=== PATIENT | female | born 1960 | race Caucasian/White ===

== ENCOUNTER 2019-08-03 17:17 | Outpatient (CLI) | payer SELFPAY ==
[2019-08-03 18:40] LABS: Alanine Aminotransferase 14 U/L (0-33); Albumin Level 4.3 g/dL (3.5-5.2); Alkaline Phosphatase 97 IU/L (35-105); Anion Gap 18.4 (5-19); Aspartate Amino Transferase 17 U/L (0-32); Blood Urea Nitrogen 15 mg/dL (6-20); Calcium 9.4 mg/dL (8.5-10.5); Carbon Dioxide 25 mmol/L (22-29); Chloride 99 mmol/L (98-107); Chol HDL Ratio 5.06 mg/dL (0.0-4.40); Cholesterol 157 mg/dL (0-200); Globulin 2.8 g/dL (1.3-4.6); Glomerular Filtration Rate 73.9 mL/min (90-130); Glucose 100 mg/dL (65-115); HDL Cholesterol 31 mg/dL (60-100); LDL Cholesterol Calculated 80 mg/dL (50-129); LDL HDL Ratio 2.58 RATIO (0.00-3.22); Osmolality Calculated 284 mOsm/kg (285-295); Potassium 3.4 mmol/L (3.5-5.1); Sodium 139 mmol/L (136-145); Total Bilirubin 0.8 mg/dL (0.15-1.2); Total Protein 7.1 g/dL (6.6-8.7); Triglycerides 228 mg/dL (0-150)
== END 2019-08-03 17:18 | disposition home or self-care (01) ==
LOC: LAB 17:17
PROVIDERS: PCP Nurse Practitioner; Visit Provider General Practice
DX: I10 Essential (primary) hypertension (principal)
CPT/HCPCS: 80053; 80061

== ENCOUNTER 2021-03-31 20:49 | Emergency (ER) | payer MEDICAID, SELFPAY ==
--- NOTE | 2021-03-31 20:58 | XRR_ITS ---
PROCEDURE INFORMATION: Exam: XR Chest Exam date and time: 03/31/2021 8:58 PM Age: 60 years old Clinical indication: Dyspnea; Additional info: SOB TECHNIQUE: Imaging protocol: XR of the chest. Views: 1 view. COMPARISON: No relevant prior studies available. FINDINGS: Lungs: Hazy opacity projecting over the lower lungs bilaterally may be due to overlying soft tissues. There is no focal consolidation. There is a granuloma in the left upper lung. Pleural spaces: There is no pleural effusion or pneumothorax. Heart/Mediastinum: Cardiomediastinal contours are unremarkable. Bones/joints: Bones are unremarkable. XR/XR chest 1V portable [id number] IMPRESSION: Mild hazy opacity in the lower lungs of questionable significance. Possible pulmonary edema or consolidation versus density related overlying soft tissues. Consider follow-up PA and lateral chest radiographs.
[2021-03-31 22:19] VITALS: BP 160/106; PULSE 94; RESP 28; TEMP 36.9; O2SAT 95; BMI 47.2
--- NOTE | 2021-03-31 22:25 | ECG_ITS ---
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 Measurements Intervals [place] Rate: 94 P: 75 MN: 167 QRS: 61 QRSD: 87 T: 83 QT: 348 QTc: 435 Interpretive Statements SINUS RHYTHM No previous ECG available for comparison Electronically Signed On 04-01-2021 17:12:44 NOVELTY CHAIN MAKER by Caleb Crowell M.D. [id number]
[2021-04-01 00:01] LABS: Basophils % 0.7 %; Eosinophils # 0.1 10^3/uL (0.0-0.8); Eosinophils % 2.1 %; Hematocrit 42.5 % (37.0-47.0); Hemoglobin 13.4 g/dL (11.5-15.3); Lymphocytes # 1.1 10^3/uL (0.8-4.8); Mean Corpuscular HGB Conc 31.5 g/dL (30.0-36.0); Mean Corpuscular Hemoglobin 28.9 pg (28.0-34.0); Mean Corpuscular Volume 91.6 fl (81-99); Mean Platelet Volume 9.2 fL (7.4-10.4); Monocytes # 0.4 10^3/uL (0.2-0.9); Monocytes % 7.6 %; Neutrophils # 3.94 10^3/uL (1.8-7.7); Neutrophils % 69.2 %; Nucleated Red Blood Cells % 0 %; Platelet Count 186 10^3/cmm (130-400); Red Blood Count 4.64 10^6/uL (4.1-5.3); Red Cell Distribution Width 13.6 % (12.1-15.1); White Blood Count 5.7 10^3/uL (4.0-10.0)
[2021-04-01 00:22] LABS: SARS Covid-2 Antigen Negative (Negative)
[2021-04-01 00:37] LABS: Troponin(5th) Baseline 6 ng/L (0-10)
[2021-04-01 00:38] LABS: Albumin Level 4.4 g/dL (3.5-5.2); Alkaline Phosphatase 106 IU/L (35-105); Blood Urea Nitrogen 14 mg/dL (6-20); Calcium 8.2 mg/dL (8.5-10.5); Carbon Dioxide 26 mmol/L (22-29); Chloride 100 mmol/L (98-107); Globulin 1.9 g/dL (1.3-4.6); Glomerular Filtration Rate 102.3 mL/min (90-130); Glucose 93 mg/dL (65-115); Osmolality Calculated 284 mOsm/kg (285-295); Sodium 137 mmol/L (136-145); Total Bilirubin 0.5 mg/dL (0.15-1.2); Total Protein 6.3 g/dL (6.6-8.7)
[2021-04-01 00:43] LABS: Alanine Aminotransferase 13 U/L (0-33); Anion Gap 16.1 (5-19); Aspartate Amino Transferase 27 U/L (0-32); Potassium 5.1 mmol/L (3.5-5.1)
[2021-04-01 00:44] LABS: Procalcitonin 0.05 ng/mL (0-0.5)
--- NOTE | 2021-04-01 01:15 | W.ED.SOB ---
HPI - SOB/Dyspnea General: Chief Complaint: Shortness of Breath/Dyspnea Stated Complaint: diff breathing, cough Time Seen by Provider: 03/31/21 23:19 Source: patient Mode of arrival: ambulatory Limitations: no limitations History of Present Illness: HPI Narrative: 60-year-old female states that over the last 3 to 4 days she had a cough congestion along with some shortness of breath she states she does have a history of bronchitis and this is similar. She has had low-grade fevers. She denies any worsening improving factors denies any vomiting denies any chest pain currently. She is in no distress able speak in full senses. Associated symptoms: Deny abdominal pain, chest pain, fever(s), nausea or vomiting Review of Systems Const: Denies: fever(s), chills, body aches or change in appetite Eyes: Denies: blurry vision or eye discomfort ENMT: Denies: throat pain or dental pain Card: Denies: chest pain Resp: Reports: dyspnea, non-productive cough and wheezing GI: Denies: abdominal pain, nausea, vomiting or diarrhea : Denies: dysuria Musc: Denies: neck pain or back pain Skin/Breast: Denies: rash Neuro: Denies: headache(s) Psych: Denies: depression Mehrdad/Lymph: Denies: easy bruising All/Imm: Denies: urticaria PFSH ED PFSH: Medical History Bronchitis Social History Smoking and tobacco status: former smoker Physical Exam Const: COMMON NORMALS: no acute distress, patient oriented x3 and healthy appearing HENMT: COMMON NORMALS: normocephalic and atraumatic HEAD & SCALP: normocephalic and atraumatic Eye: COMMON NORMALS: Equal, round and reactive pupils present and EOMs intact bilaterally PUPIL: Yes Equal, round and reactive pupils present Neck/C-Spine: COMMON NORMALS: full ROM and supple Chest: COMMONS NORMALS: normal inspection of the chest and normal palpation of entire chest wall Resp: COMMON NORMALS: normal respiratory effort, No retractions, No use of accessory muscles and clear to auscultation bilaterally AUSCULTATION: clear to auscultation bilaterally and wheezes Cardio: COMMON NORMALS: regular rate, regular rhythm and No murmurs present (Cardio) RATE: regular rate RHYTHM: regular rhythm GI: COMMON NORMALS: Normal to inspection, nondistended, normoactive bowel sounds present, Soft to palpation, non-tender and no masses PALPATION: Yes Soft to palpation Extremity: COMMON NORMALS: normal to inspection and full ROM Neuro: COMMON NORMALS: patient oriented x3, moves all extremities and no focal motor deficits Psych: COMMON NORMALS: mental status grossly normal, Normal thought process present and cooperative THOUGHT PROCESS: Normal thought process present Skin: COMMON NORMALS: no rashes or lesions noted and no wounds GENERAL SKIN EXAM: no rashes or lesions noted Course Vital Signs: Vital signs: Vital Signs Temperature 98.4 F 03/31/21 22:19 Pulse Rate 94 03/31/21 22:19 Respiratory Rate 28 H 03/31/21 22:19 Blood Pressure 160/106 03/31/21 22:19 Pulse Oximetry 95 03/31/21 22:19 MDM - SOB/Dyspnea Medical Decision Making Patient presents here with cough congestion consistent with bronchitis. She does have wheezing here no severe distress x-ray shows a possible haziness we will treat with antibiotics doxycycline along with prednisone and albuterol she is stable for discharge return if worsening she understands agrees to plan. Lab Data : 03/31/21 23:50 03/31/21 23:50 Labs/Radiology: Radiology Impressions Chest X-Ray 03/31/21 20:58 IMPRESSION: Mild hazy opacity in the lower lungs of questionable significance. Possible pulmonary edema or consolidation versus density related overlying soft tissues. Consider follow-up PA and lateral chest radiographs. Laboratory Results WBC 5.7 10^3/uL (4.0-10.0) 03/31/21 23:50 RBC 4.64 10^6/uL (4.1-5.3) 03/31/21 23:50 Hgb 13.4 g/dL (11.5-15.3) 03/31/21 23:50 Hct 42.5 % (37.0-47.0) 03/31/21 23:50 MCV 91.6 fl (81-99) 03/31/21 23:50 MCH 28.9 pg (28.0-34.0) 03/31/21 23:50 MCHC 31.5 g/dL (30.0-36.0) 03/31/21 23:50 RDW 13.6 % (12.1-15.1) 03/31/21 23:50 Plt Count 186 10^3/cmm (130-400) 03/31/21 23:50 MPV 9.2 fL (7.4-10.4) 03/31/21 23:50 Neut % (Auto) 69.2 % 03/31/21 23:50 Lymph % (Auto) 20.0 % 03/31/21 23:50 [place] % (Auto) 7.6 % 03/31/21 23:50 Eos % (Auto) 2.1 % 03/31/21 23:50 Baso % (Auto) 0.7 % 03/31/21 23:50 Neut # (Auto) 3.94 10^3/uL (1.8-7.7) 03/31/21 23:50 Lymph # (Auto) 1.1 10^3/uL (0.8-4.8) 03/31/21 23:50 [place] # (Auto) 0.4 10^3/uL (0.2-0.9) 03/31/21 23:50 Eos # (Auto) 0.1 10^3/uL (0.0-0.8) 03/31/21 23:50 Baso # (Auto) 0.0 10^3/uL (0.0-0.1) 03/31/21 23:50 Nucleated RBC % (auto) 0 % 03/31/21 23:50 Nucleated RBCs # 0.0 /100WBC 03/31/21 23:50 Sodium 137 mmol/L (136-145) 03/31/21 23:50 Potassium 5.1 mmol/L (3.5-5.1) 03/31/21 23:50 Chloride 100 mmol/L (98-107) 03/31/21 23:50 Carbon Dioxide 26 mmol/L (22-29) 03/31/21 23:50 Anion Gap 16.1 (5-19) 03/31/21 23:50 BUN 14 mg/dL (6-20) 03/31/21 23:50 Creatinine 0.6 mg/dL (0.5-0.9) 03/31/21 23:50 GFR Calculation 102.3 mL/min (90-130) 03/31/21 23:50 Glucose 93 mg/dL (65-115) 03/31/21 23:50 Calculated Osmolality 284 mOsm/kg (285-295) L 03/31/21 23:50 Calcium 8.2 mg/dL (8.5-10.5) L 03/31/21 23:50 Total Bilirubin 0.5 mg/dL (0.15-1.2) 03/31/21 23:50 AST 27 U/L (0-32) 03/31/21 23:50 ALT 13 U/L (0-33) 03/31/21 23:50 Alkaline Phosphatase 106 IU/L (35-105) H 03/31/21 23:50 Troponin T Baseline 6 ng/L (0-10) 03/31/21 23:50 Total Protein 6.3 g/dL (6.6-8.7) L 03/31/21 23:50 Albumin 4.4 g/dL (3.5-5.2) 03/31/21 23:50 Globulin 1.9 g/dL (1.3-4.6) 03/31/21 23:50 Procalcitonin 0.05 ng/mL (0-0.5) 03/31/21 23:50 SARS-CoV-2 Ag (Rapid) Negative (Negative) 03/31/21 23:50 Imaging Data CXR: I personally reviewed and interpreted this imaging study as follows: Radiologist's impression: IMPRESSION: Mild hazy opacity in the lower lungs of questionable significance. Possible pulmonary edema or consolidation versus density related overlying soft tissues. Consider follow-up PA and lateral chest radiographs. Discharge Plan Discharge Patient Disposition: Home Clinical Impression: Bronchitis Prescriptions: New prednisone 50 mg tablet 50 mg PO DAILY Qty: 5 0RF albuterol sulfate 90 mcg/actuation HFA aerosol inhaler 2 inh INHALATION Q6H PRN (Reason: shortness of breath or wheezing) Qty: 8 0RF doxycycline hyclate 100 mg tablet 100 mg PO BID 7 Days Qty: 14 0RF Discharge Orders: Discharge ED (Routine); Ordered 04/01/21 Ordered By: Raissa Silvestre Discharge Diet: Advance as tolerated Discharge Activity: Resume usual activity Patient Instructions: Acute Bronchitis (ED) Coding Level of Care Code ED Remote Pilot Operator for Chg Fwd Exam Comprehensive
[2021-04-01 01:25] VITALS: PULSE 95; RESP 18; O2SAT 95
[2021-04-01] MEDS: albuterol 8 gm MDI 2 PUFF INHALATION (01:25)
[2021-04-01 01:33] VITALS: BP 146/102
[2021-04-01 01:37] VITALS: O2SAT 94
[2021-04-01 13:12] LABS: Adenovirus Not Detected (NOT DETECT); Chlamydia Pneumoniae Not Detected (NOT DETECT); Coronavirus 229E,HKU1,NL63,OC4 Not Detected (NOT DETECT); Human Metapneumovirus Detected (NOT DETECT); Human Rhinovirus/Enterovirus Not Detected (NOT DETECT); Influenza A Not Detected (NOT DETECT); Influenza A H1 Not Detected (NOT DETECT); Influenza A H1-2009 Not Detected (NOT DETECT); Influenza A H3 Not Detected (NOT DETECT); Influenza B Not Detected (NOT DETECT); Mycoplasma Pneumoniae Not Detected (NOT DETECT); Parainfluenza Virus Type 1 Not Detected (NOT DETECT); Parainfluenza Virus Type 2 Not Detected (NOT DETECT); Parainfluenza Virus Type 3 Not Detected (NOT DETECT); Parainfluenza Virus Type 4 Not Detected (NOT DETECT); Respiratory Syncytial Virus A Not Detected (NOT DETECT); Respiratory Syncytial Virus B Not Detected (NOT DETECT); SARS-COV-2 Not Detected (NOT DETECT)
[2021-04-01 13:14] LABS: Human Metapneumovirus Detected (NOT DETECT); Human Rhinovirus/Enterovirus Not Detected (NOT DETECT); Results from GEN
== END 2021-04-01 01:37 | disposition home or self-care (01) ==
PROVIDERS: Physician Assistant; Emergency Provider Emergency Medicine
DX: J40 Bronchitis, not specified as acute or chronic (principal); Z87.891 Personal history of nicotine dependence; Z20.822 Contact with and (suspected) exposure to COVID-19
CPT/HCPCS: 71045; 80053; 84145; 84484; 85025; 87426; 87635; 87801; 93005; 94640; 96374; 99283; J2930; J3535

== ENCOUNTER 2021-04-07 13:04 | Outpatient (CLI) | payer MEDICAID, SELFPAY ==
--- NOTE | 2021-04-07 13:14 | XR_ITS ---
WS: [id number] CHEST 2 VIEWS HISTORY: cough COMPARISON: 03/31/2021 Lungs: Hyperexpanded lungs. Mild hazy opacifications over both lungs similar to the prior study. No d ense area of consolidation. Benign granuloma LEFT upper lobe. Cardiac size: Normal. Mediastinum/Aorta: Normal mediastinum. Bones: Normal. XR/XR chest 2V* [id number] IMPRESSION: 1. Very mild hazy opacification continues to both lungs. May be related to mil d pneumonitis or respiratory bronchiolitis related to smoking. Mild edema also within the differential. 2. No pneumonia.
== END 2021-04-07 13:05 | disposition home or self-care (01) ==
LOC: RAD 13:10
PROVIDERS: Visit Provider Nurse Practitioner
DX: J18.9 Pneumonia, unspecified organism (principal); R05.9 Cough, unspecified
CPT/HCPCS: 71046

== ENCOUNTER 2022-12-31 15:44 | Outpatient (CLI) | payer MEDICAID, SELFPAY ==
--- NOTE | 2022-12-31 15:56 | XR_ITS ---
WS: [id number] Lumbar spine, 7 views, AP, lateral L5-S1 spot, both obliques, lateral views in flexion, extension and neutral position, 12/31/2022 Clinical Data: Chronic back pain Comparison: None. Findings: There is a 1.0 cm anterior subluxation of L5 on S1 with obliteration of the disc. There is bilateral' s spondylolysis at L5-S1 there is degenerative disc narrowing at T12-L1 and L1-L2. There are small os teophytes at the anterior aspect of T11, T12 and L1. There are no compression fractures. The oblique films show spondylolysis with spondylolisthesis at L 5-S1. The transverse processes and the SI joints are unremarkable. On flexion and extension there is no change in the subluxation. Impression: 1. 1.0 cm anterior subluxation of L5 on S1 with disc obliteration. 2. 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 3. Disc narrowing at T12-L1 and L1-L2. 4. Bilateral L5-S1 spondylolysis with spondylolisthesis at L5-S1. 5. No change in subluxation on flexion or extension.
== END 2022-12-31 15:45 | disposition home or self-care (01) ==
PROVIDERS: PCP Family Medicine; Visit Provider Family Medicine
DX: M43.07 Spondylolysis, lumbosacral region (principal); M54.9 Dorsalgia, unspecified; M25.78 Osteophyte, vertebrae
CPT/HCPCS: 72114

== ENCOUNTER → 2023-02-11 14:47 | Outpatient (BNVA) | payer MEDICAID, SELFPAY | PROVIDERS: PCP Family Medicine; Visit Provider Orthopaedic Surgery | DX: M43.17 Spondylolisthesis, lumbosacral region (principal) | CPT/HCPCS: 72100; 99204 ==

== ENCOUNTER 2023-02-26 13:35 | Outpatient (CLI) | payer MEDICAID, SELFPAY ==
--- NOTE | 2023-02-26 13:41 | US_ITS ---
WS: [id number] US pelvic complete* [id number] HISTORY: POSTMENOPAUSAL BLEEDING COMPARISON: None available. Only transabdominal imaging is submitted. Uterus: 14.8 cm x 10.0 cm x 7.5 cm. Enlarged heterogeneous uterus. The endometrium cannot be distinguished from the myometrium. Neither ovary is identified. No free fluid. IMPRESSION: 1. Significantly limited quality evaluation of the pelvic structures. Patient refused transvaginal i maging. 2. Enlarged heterogeneous uterus. The endometrium cannot be distinguished from the myometrium. Diffe rential includes abnormal endometrium consistent with carcinoma versus fibroid uterus extending into the endometrium. Endometrial neoplasm needs to be excluded.
== END 2023-02-26 13:36 | disposition home or self-care (01) ==
LOC: RAD 13:36
PROVIDERS: PCP Family Medicine; Visit Provider Family Medicine
DX: N95.0 Postmenopausal bleeding (principal); N85.2 Hypertrophy of uterus
CPT/HCPCS: 76856

== ENCOUNTER → 2023-03-04 13:19 | Outpatient (BNVA) | payer MEDICAID, SELFPAY | PROVIDERS: PCP Family Medicine; Referring Provider Family Medicine; Visit Provider Internal Medicine | DX: R07.9 Chest pain, unspecified (principal); I10 Essential (primary) hypertension; E78.5 Hyperlipidemia, unspecified | CPT/HCPCS: 93005; 99204 ==

== ENCOUNTER 2023-03-17 06:40 | Outpatient (CLI) | payer MEDICAID, SELFPAY ==
--- NOTE | 2023-03-17 | ECG_ITS ---
[facility] Test Date: 2023-03-17 Pat Name: Orly Arellano Department: Room: Gender: Female Delivery Room Supervisor: Levnu Briscoe : 1960 Requested By: Caleb Crowell Order Number: [id number] [place] MD: Caleb Crowell M.D. Interpretive Statements NAME OF STUDY: LEXISCAN SESTAMIBI STRESS TEST INDICATION: [Chest Pain/sob, ] Procedure: At the baseline, the blood pressure was 138/76 mmHg with a heart rate of 82 bpm. The electrocardiogram showed normal sinus rhythm, normal axis with normal ST and T's. The Lexiscan was infused over a period of 20 seconds. A total of 0.4 mg of Lexiscan was infused. The stress phase was continued for a total of 5 minutes. Heart rate was at the end of stress phase was 94 bpm and a blood pressure of 124/72 mmHg. The EKG at the peak infusion revealed normal sinus rhythm with no significant ST-T wave changes. PVCs were noted Sestamibi was injected 20 seconds after the Lexiscan infusion. Blood pressure at the end of recovery phase was 119/82 mmHg with a heart rate of 82 bpm. PVCs seen Conclusion: 1. Normal EKG response to Lexiscan infusion 2. No Lexiscan induced chest pain or cardiac arrhythmia. 3. Normal blood pressure and heart rate response. 4. Sestamibi/sestamibi perfusion scan pending; see separate report. Electronically Signed On 03-28-2023 11:48:55 GAS SUBSTATION OPERATOR by Caleb Crowell M.D. [id number]
--- NOTE | 2023-03-17 07:00 | USCV_ITS ---
Orly Arellano Age: 62 Gender: F : 1960 Exam Date: 03/17/2023 06:58 Ordering Phys: Caleb Crowell M.D ([email or web address]) Technologist: LINH [place] [facility] [place]: CHEST PAIN, SHORTNESS OF BREATH BP: 130 / 82 HR: 84 Rhythm: Sinus Technical Quality: Adequate MEASUREMENTS (Male / Female) Normal Values 2D ECHO LVOT Diameter 2.0 cm LV Ejection Fraction MOD 2C 60.8 % LV Ejection Fraction 2C AL 60.6 % LA Diameter 3.5 cm LA Width 3.1 cm LA Height 3.9 cm RA Width 3.0 cm RA Height 4.4 cm Aorta at Sinotubular Diameter 1.8 cm IVC Diameter 2.0 cm M-MODE Aortic Annulus Diameter 2.6 cm LA Ao Ratio MM 1.3 MV E Point Septal Separation 0.8 cm DOPPLER AV Peak Velocity 248.0 cm/s LVOT Peak Velocity 113.0 cm/s AV Area Cont Eq vti 1.4 cm squared AV Area Cont Eq pk 1.4 cm squared MV Peak Velocity 106.0 cm/s MV Area PHT 3.9 cm squared Mitral E to A Ratio 0.9 MV E' Velocity 42.0 cm/s Mitral E to MV E' Ratio 9.0 Mitral E to LV E' Lateral Ratio 9.3 Mitral E to LV E' Septal Ratio 8.8 TR Peak Velocity 195.5 cm/s TR Peak Gradient 15.3 mmHg TR Mean Velocity 163.8 cm/s TR Mean Gradient 11.1 mmHg TR Velocity Time Integral 60.7 cm TV Peak E Velocity 43.0 cm/s Right Atrial Pressure 3.0 mmHg Pulmonary Artery Systolic Pressu 18.3 mmHg PV Peak Velocity 151.0 cm/s RV Acceleration Time 0.1 s RV Ejection Time 0.3 s RV AcT/ET 0.3 FINDINGS Left Ventricle Left ventricle is normal in size. LV systolic function is normal with EF of 60 to 65%. No regional wall motion abilities are seen. Right Ventricle Normal in size and function Right Atrium Normal in size Left Atrium Dilated Mitral Valve Structurally normal mitral valve. Trace mitral regurgitation Aortic Valve Structurally normal aortic valve. Mild aortic stenosis with aortic valve area 1.47 cm squared and mean gradient of 16 mmHg. Tricuspid Valve Mild tricuspid regurgitation. Pulmonic Valve Not well visualized Pericardium Normal Aorta Ascending aorta is dilated with diameter of 3.8 cm. IVC Appears to be normal CONCLUSIONS LV systolic function is normal with EF of 60 to 65%. Left atrial dilation Trace mitral regurgitation Mild aortic stenosis Mild tricuspid regurgitation Ascending aorta is dilated with diameter of 3.8 cm No comparison studies are available Caleb Crowell MD (Electronically Signed) Final Date: 26 March 2023 15:35 S
--- NOTE | 2023-03-17 08:16 | NMCV_ITS ---
NM natalya perf SPECT r/s* [id number] Orly Arellano Age: 62 Gender: F : 1960 Exam Date: 03/17/2023 08:57 Ordering Phys: Caleb Crowell M.D ([email or web address]) Technologist: MOMO Peter Exam Location: [facility] Indications: CHEST PAIN, SHORTNESS OF BREATH STRESS TEST Please see separate stress test report in [facility] for full findings IMAGE PROTOCOL Rest/Stress 1 Lexiscan Day Radiopharmaceutical Dose (mCi) Administration Site Administered by Rest: Tc-99m 10.6 IV MMOO Peter Sestamibi Stress:Tc-99m 33.0 IV MOMO Hamilton Sestamibi Rest: 17-Mar-2023 60 Discovery 630 Stress: 17-Mar-2023 30 Discovery 630 0.4mg Lexiscan. Supine position only as patient was unable to lay prone. SPECT RESULTS Technical Quality: Good Raw Data Analysis: Breast attenuation Image Corrections: No attenuation or motion correction applied Summed Stress Score: 0 Summed Rest Score: 4 Summed Difference Score: 0 PERFUSION FINDINGS SPECT images demonstrate homogeneous tracer distribution throughout the myocardium. FUNCTIONAL RESULTS (calculated via Gated SPECT) Stress Image LV EF (%): 72 Stress EDV (mL):87 TID: 1.02 Stress ESV (mL):24 FUNCTIONAL FINDINGS: There is normal left ventricular systolic function. IMPRESSIONS 1. Normal myocardial perfusion imaging with no evidence of ischemia 2. LV systolic function is normal. Caleb Crowell MD (Electronically Signed) Final Date: 18 March 2023 12:38 S
[2023-03-17 08:17] VITALS: BMI 44.3
[2023-03-17] MEDS: regadenoson 0.4 Mg/5 ml Syringe IVP (09:53)
[2023-03-17 09:54] VITALS: BP 119/82; PULSE 89
== END 2023-03-17 06:41 | disposition home or self-care (01) ==
LOC: RAD 06:43 → CCL 08:02 → CDL 08:15
PROVIDERS: PCP Family Medicine; Visit Provider Internal Medicine
DX: I08.2 Rheumatic disorders of both aortic and tricuspid valves (principal); R07.9 Chest pain, unspecified
CPT/HCPCS: 36415; 78452; 93017; 93306; 96374; A9500; J2785

== ENCOUNTER 2023-03-23 12:47 | Outpatient (CLI) | payer MEDICAID, SELFPAY ==
--- NOTE | 2023-03-23 13:00 | MR_ITS ---
WS: [id number] MRI LUMBAR SPINE NONCONTRAST TECHNIQUE: Sagittal T1, T2 and STIR imaging. Axial T1 and T2 imaging. CLINICAL INFORMATION: low back pain COMPARISON: None. FINDINGS: 5 nonrib-bearing vertebral bodies for the purposes of this dictation considered L1-L5 in ke eping with the prior plain film numbering convention. Mild lumbar curve. No acute compression. Grade 2 anterolisthesis L5 on S1 with chronic spondylolysis. Complete loss of disc space at this level with endplate degenerative changes. Mild chronic anterior wedging at T12 with endplate Schmorl's node. T12-L1: Shallow central protrusion. Spinal canal and foramen are patent. Mild facet arthropathy. L1-L2: Slight retrolisthesis L1 on L2. Mild disc bulging with a small central protrusion and mild megan tral canal stenosis. Slight impingement traversing L2 nerve roots bilaterally. Mild facet arthropathy . Mild RIGHT foraminal narrowing. LEFT foramen is patent. L2-L3: Mild annular bulging. Mild facet arthropathy. Spinal canal and foramen are patent. L3-L4: Mild annular bulging. Tiny central protrusion. Mild facet arthropathy. Spinal canal and forame n are patent. L4-L5: Mild annular bulging. Mild facet arthropathy. Spinal canal is patent. Mild bilateral foraminal narrowing. L5-S1: Grade 2 anterolisthesis L5 on S1. Chronic spondylolysis. Spinal canal is patent. Slight contac t of the traversing S1 nerve roots bilaterally. Mild bilateral bony foraminal narrowing. Partially visualized enlarged bulky uterus has an abnormal appearance. This is poorly visualized. Rec ommend further evaluation with ultrasound CT or MRI. Carcinoma should be excluded. IMPRESSION: 5 nonrib-bearing lumbar vertebral bodies visualized. Considered L1-L5 for the purposes of this dictation in keeping with the prior plain film numbering convention. Recommend radiograph corre lation prior to surgical intervention. 1. Grade 2 anterolisthesis L5 on S1 with chronic spondylolysis. Complete loss of disc space at thi s level with endplate degenerative changes. Anterolisthesis measures 14 mm. 2. Shallow central protrusion L1-2 with mild central canal stenosis and narrowing of the subarticul ar recess bilaterally. Slight impingement traversing L2 nerve roots. 3. Shallow central protrusion T12-L1. 4. Mild narrowing of the thecal sac at L5-S1 with slight encroachment traversing S1 nerve roots. Mi ld bilateral bony foraminal narrowing with advanced facet arthropathy. 5. Partially visualized abnormal enlarged bulky uterus with suggestion of diffuse endometrial thicke kristi. This is poorly visualized and carcinoma is not excluded. Recommend further evaluation with cont rast-enhanced CT abdomen/pelvis, ultrasound, or MRI. Recommend COO consultation.
== END 2023-03-23 12:48 | disposition home or self-care (01) ==
LOC: RAD 12:47
PROVIDERS: PCP Family Medicine; Visit Provider Orthopaedic Surgery
DX: M47.817 Spondylosis without myelopathy or radiculopathy, lumbosacral region (principal); M48.07 Spinal stenosis, lumbosacral region; M51.25 Other intervertebral disc displacement, thoracolumbar region; R93.89 Abnormal findings on diagnostic imaging of other specified body structures; N85.2 Hypertrophy of uterus
CPT/HCPCS: 72148

== ENCOUNTER → 2023-03-25 16:40 | Outpatient (BNVA) | payer MEDICAID, SELFPAY | PROVIDERS: PCP Family Medicine; Visit Provider Nurse Practitioner Women's Health | DX: N95.0 Postmenopausal bleeding (principal) | CPT/HCPCS: 87624; 88305 ==

== ENCOUNTER → 2023-04-13 13:15 | Outpatient (BNVA) | payer MEDICAID, SELFPAY | PROVIDERS: PCP Family Medicine; Visit Provider Orthopaedic Surgery | DX: M43.17 Spondylolisthesis, lumbosacral region; M25.569 Pain in unspecified knee | CPT/HCPCS: 99214 ==

== ENCOUNTER → 2023-04-14 14:49 | Outpatient (BNVA) | payer MEDICAID, SELFPAY | PROVIDERS: PCP Family Medicine; Visit Provider Specialist | DX: M17.11 Unilateral primary osteoarthritis, right knee; E66.01 Morbid (severe) obesity due to excess calories; Z68.42 Body mass index [BMI] 45.0-49.9, adult | CPT/HCPCS: 20610; 73560; 73565; 99204; 99214; J1100; J2795; J3301 ==

== ENCOUNTER → 2023-05-06 12:25 | Outpatient (BNVA) | payer MEDICAID, SELFPAY | PROVIDERS: PCP Family Medicine; Visit Provider Internal Medicine | DX: R07.9 Chest pain, unspecified (principal); I10 Essential (primary) hypertension; E78.5 Hyperlipidemia, unspecified | CPT/HCPCS: 99214 ==

== ENCOUNTER 2023-07-15 07:40 | Day surgery (SDC) | payer MEDICAID, SELFPAY ==
--- NOTE | 2023-06-03 02:39 | W.PM.OPSFHP ---
Same Day Surgery H&P Indication for Procedure/HPI DATE OF PROCEDURE: June 03, 2023 CHIEF COMPLAINT/INDICATIONFOR SURGICAL PROCEDURE: abnormal uterine bleeding PREOP DIAGNOSIS: abnormal uterine bleeding PLANNED PROCEDURE: Operation Date: 06/03/23 11:00 Proposed Procedures p Hysteroscopy, endometrial sampling, possible endometrial polypectomy 95522, Intrauterine device placement 29129,n95.0(Not Applicable) - Jewel Waters MD s Poss Poylpectomy(Not Applicable) - Jewel Waters MD s Placement of Intrauterine Device(Not Applicable) - Jewel Waters MD 62 y.o. Periods irregular ?never really stop bleeding? Can last 5 minutes to hours Medications/Allergies* Home Medications Medication Instructions Recorded Confirmed Type amlodipine 5 mg tablet 5 mg PO DAILY 03/04/23 06/02/23 History atorvastatin 20 mg tablet 20 mg PO DAILY 03/04/23 06/02/23 History gabapentin 600 mg tablet 2,400 mg PO BEDTIME 03/04/23 06/02/23 History hydrochlorothiazide 25 mg tablet 25 mg PO DAILY 03/04/23 06/02/23 History hydroxyzine HCl 50 mg tablet 50 mg PO DAILY 03/04/23 06/02/23 History losartan 100 mg tablet 100 mg PO DAILY 03/04/23 06/02/23 History meloxicam 15 mg tablet 15 mg PO DAILY 03/04/23 06/02/23 History pantoprazole 40 mg tablet,delayed 40 mg PO DAILY 03/04/23 06/02/23 History release methocarbamol 500 mg tablet 1,000 mg PO .HS 04/13/23 06/02/23 History Allergies/Adverse Reactions Allergy/AdvReac Type Severity Reaction Status Date / Time No Known Allergies Allergy Verified 06/02/23 08:36 Pertinent History/Comorbid Conditions* Medical History (Updated 04/16/23 @ 22:12 by Carol Smith MD) Bronchitis Family History (Updated 03/25/23 @ 14:11 by Kait Kidd CMA) High cholesterol Father Heart disease Father Hypertension Father Denies family history of Colon cancer Ovarian cancer Diabetes Breast cancer Uterine cancer Thyroid disease Stroke Social History Smoking and tobacco/nicotine status: never used tobacco/nicotine Pertinent Exam Findings alert, oriented x 3, clear to auscultation bilaterally and regular rate & rhythm Pertinent Data Pelvic sono 02-26-23 Uterus 14.8 x 10 x 7.5 cm Enlarged heterogeneous uterus Endometrium not able to be distinguished from myometrium Ovaries not identified Recommendations Surgery/Procedure today Coding Level of Care Code Acute Code for Chg Fwd Time Spent (min) 20
--- NOTE | 2023-07-14 13:42 | P.HP_ITS ---
Same Day Surgery H&P Indication for Procedure/HPI DATE OF PROCEDURE: July 15, 2023 CHIEF COMPLAINT/INDICATIONFOR SURGICAL PROCEDURE: abnormal uterine bleeding PREOP DIAGNOSIS: abnormal uterine bleeding PLANNED PROCEDURE: Operation Date: 07/15/23 08:25 Proposed Procedures p Hysteroscopy, endometrial sampling, possible endometrial polypectomy 22338, In trauterine device placement 23793,n95.0(Not Applicable) - Jewel Waters MD s Poss Poylpectomy(Not Applicable) - Jewel Waters MD s Placement of Intrauterine Device(Not Applicable) - Jewel Waters MD 62 y.o. with abnormal uterine bleeding now for hysteroscopy, endometrial sampling, possible endometrial polypectomy; mirena intrauterine device insertion Medications/Allergies* Home Medications Medication Instructions Recorded Confirmed Type amlodipine 5 mg tablet 5 mg PO DAILY 03/04/23 07/14/23 History atorvastatin 20 mg tablet 20 mg PO DAILY 03/04/23 07/14/23 History gabapentin 600 mg tablet 2,400 mg PO BEDTIME 03/04/23 07/14/23 History hydrochlorothiazide 25 mg tablet 25 mg PO DAILY 03/04/23 07/14/23 History hydroxyzine HCl 50 mg tablet 50 mg PO DAILY 03/04/23 07/14/23 History losartan 100 mg tablet 100 mg PO DAILY 03/04/23 07/14/23 History meloxicam 15 mg tablet 15 mg PO DAILY 03/04/23 07/14/23 History pantoprazole 40 mg tablet,delayed 40 mg PO DAILY 03/04/23 07/14/23 History release methocarbamol 500 mg tablet 1,000 mg PO .HS 04/13/23 07/14/23 History ibuprofen 200 mg tablet 400 mg PO Q6H PRN Pain 07/14/23 07/14/23 History Allergies/Adverse Reactions Allergy/AdvReac Type Severity Reaction Status Date / Time No Known Allergies Allergy Verified 07/14/23 09:57 Pertinent History/Comorbid Conditions* Medical History (Updated 04/16/23 @ 22:12 by Carol Smith MD) Bronchitis Family History (Updated 03/25/23 @ 14:11 by Kait Kidd CMA) High cholesterol Father Heart disease Father Hypertension Father Denies family history of Colon cancer Ovarian cancer Diabetes Breast cancer Uterine cancer Thyroid disease Stroke Social History Smoking and tobacco/nicotine status: never used tobacco/nicotine Pertinent Exam Findings alert, oriented x 3, clear to auscultation bilaterally and regular rate & rhythm Pertinent Data pelvic sono uterus 14.8 x 10 x 7.5 cm, heterogeneous ovaries not visualized Recommendations Surgery/Procedure today Coding Level of Care Code Acute Code for Chg Fwd Time Spent (min) 20
[2023-07-15] VITALS (10 sets, daily range): BP systolic 115–142; BP diastolic 73–98; PULSE 70–79; RESP 14–18; TEMP 36.3–36.7; O2SAT 94–100; BMI 45.8
--- NOTE | 2023-07-15 08:47 | P.ANESASSM_ITS ---
Pre-Anesthetic Assessment Height/Weight: Height 1.75 m Preop Diagnosis: abnormal uterine bleeding Operation Date: 07/15/23 10:00 Proposed Procedures p Hysteroscopy, endometrial sampling, possible endometrial polypectomy 91550, Intrauterine device placement 22912,n95.0(Not Applicable) - Jewel Waters MD s Poss Poylpectomy(Not Applicable) - Jewel Waters MD s Placement of Intrauterine Device(Not Applicable) - Jewel Waters MD Familial anesthetic complications: None Was Beta Servando taken within 24 hours: N/A Was Clonidine taken within 24 hours: N/A Last intake: > 8 hrs Social No alcohol and No tobacco Exam alert, oriented x 3, clear to auscultation bilaterally and regular rate & rhythm Airway Mallampati: Class III Dentition: false Pulmonary Asthma and Chronic Obstructive Pulmonary Disease (chronic bronchitis) CV/HEM Hypertension Metabolic Hyperlipidemia and Morbid Obesity Anesthetic Plan ASA status: 3 Anesthesia: General Risk of > 500 ml blood loss (7ml/kg in children): No Medications/Allergies Home Medications Medication Instructions Recorded Confirmed Last Taken Type albuterol sulfate 2.5 mg/3 mL 2.5 mg (3 mL) inhalation QID PRN 04/07/21 06/02/23 Unknown Rx (0.083 %) solution for nebulization shortness of breath or wheezing #75 mL amlodipine 5 mg tablet 5 mg PO DAILY 03/04/23 07/14/23 07/14/23 History atorvastatin 20 mg tablet 20 mg PO DAILY 03/04/23 07/14/23 07/14/23 History gabapentin 600 mg tablet 2,400 mg PO BEDTIME 03/04/23 07/14/23 07/14/23 History hydrochlorothiazide 25 mg tablet 25 mg PO DAILY 03/04/23 07/14/23 07/14/23 History hydroxyzine HCl 50 mg tablet 50 mg PO DAILY 03/04/23 07/14/23 07/14/23 History losartan 100 mg tablet 100 mg PO DAILY 03/04/23 07/14/23 07/14/23 History meloxicam 15 mg tablet 15 mg PO DAILY 03/04/23 07/14/23 07/14/23 History pantoprazole 40 mg tablet,delayed 40 mg PO DAILY 03/04/23 07/14/23 07/14/23 History release methocarbamol 500 mg tablet 1,000 mg PO .HS 04/13/23 07/14/23 07/14/23 History ibuprofen 200 mg tablet 400 mg PO Q6H PRN Pain 07/14/23 07/14/23 07/14/23 History Allergies Allergy/AdvReac Type Severity Reaction Status Date / Time No Known Allergies Allergy Verified 07/14/23 09:57 [facility] Anesthesia Medical History Bronchitis Family History Father Hypertension Heart disease High cholesterol Denies family history of Colon cancer Ovarian cancer Diabetes Breast cancer Uterine cancer Thyroid disease Stroke Social History Smoking and tobacco/nicotine status: never used tobacco/nicotine Data Anesthesia Cardiac Studies: Echocardiogram 03/17/23 Sestamibi Stress Test (Cardiology) 03/17
[2023-07-15] MEDS: sodium chloride 0.9% 1,000 ML 30 ML IV (09:02)
[2023-07-15 09:08] LABS: OR HCG Qualitative Urine Negative (Negative)
--- NOTE | 2023-07-15 09:20 | W.PM.OPSUD ---
Surgery/Procedure H&P Update DATE OF PROCEDURE: July 15, 2023 DATE H&P PERFORMED: 07/14/23 H&P UPDATE INFORMATION: I have reviewed H&P completed within last 30 days, I have examined patient prior to procedure and No changes to prior documentation PREOP DIAGNOSIS: abnormal uterine bleeding PLANNED PROCEDURE: Operation Date: 07/15/23 10:00 Proposed Procedures p Hysteroscopy, endometrial sampling, possible endometrial polypectomy 87037, Intrauterine device placement 23680,n95.0(Not Applicable) - Jewel Waters MD s Poss Poylpectomy(Not Applicable) - Jewel Waters MD s Placement of Intrauterine Device(Not Applicable) - Jewel Waters MD
--- NOTE | 2023-07-15 10:50 | P.OP_ITS ---
Operative Report Date of procedure: July 15, 2023 Pre-op diagnosis: abnormal uterine bleeding Post-op diagnosis: same Post-op findings: Technically difficult procedure due to patient?s morbid obesity and high cerv ical position Large amounts of endometrial tissue No definite polyps or fibroids Procedure done: hysteroscopy curettage of uterus Implants: none Specimens removed/disposition: endometrial curettings, sent to pathology Surgeon: Jewel Waters MD Anesthesia: General Estimated blood loss (mL): 0 Complications: none Findings: see above Condition: stable Disposition: PACU Brief History: 62 y.o. with abnormal uterine bleeding Procedure: Informed consent signed. Patient was taken to the operating room. Anesthesia was induced. Patient was placed in dorsolithotomy position, prepped and draped for hysteroscopy. A bivalve speculum was placed in the vagina. The anterior lip of the cervix was grasped with a sharp-toothed tenaculum. The cervix was serially dilated with Hegar dilators. . This was a technically difficult procedure due to patient?s morbid obesity, long vaginal canal, collapsing vaginal mooney, and high cervical position. A hysteroscope was placed into the endometrial cavity. The endometrial cavity was seen to have large amounts of endometrial tissue. There were no definite polyps or fibroids. A Myosure device would not have been able to be used due to the technical difficulties of the procedure. The hysteroscope was then removed. Endometrial curettage was done with a sharp curette. Endometrial tissue was sent to pathology. It was decided not to insert the mirena intrauterine device until the endometrial pathology can be ascertained. The sharp-toothed tenaculum was removed. There was no bleeding from the endometrial cavity or cervix. The patient was then placed supine and awakened and taken to the PACU. Postop condition: stable EBL: none Sponge and instruments counts were normal x 2 Complications: none
--- NOTE | 2023-07-15 12:52 | SUR.PHASEII ---
patient has been ready for discharge since 1210. She is alert and ambulatory, waiting for her ride (ready transportation) to get here. They were called.
== END 2023-07-15 13:00 | disposition home or self-care (01) ==
PROVIDERS: Anesthesiology; PCP Family Medicine; Visit Provider Obstetrics & Gynecology
PROC: 0UJD8ZZ Inspection of Uterus and Cervix, Via Natural or Artificial Opening Endoscopic (ICD-10-PCS; CPT 58555; principal; 2023-07-15 09:50)
DX: N93.9 Abnormal uterine and vaginal bleeding, unspecified (principal); J44.9 Chronic obstructive pulmonary disease, unspecified; I10 Essential (primary) hypertension; E78.5 Hyperlipidemia, unspecified; E66.01 Morbid (severe) obesity due to excess calories; Z68.42 Body mass index [BMI] 45.0-49.9, adult
CPT/HCPCS: 58558; 81025; 88305; J1100; J1200; J2250; J2405; J2704; J3010; J7030

== ENCOUNTER → 2023-07-21 14:03 | Outpatient (BNVA) | payer MEDICAID, SELFPAY | PROVIDERS: PCP Family Medicine; Visit Provider Obstetrics & Gynecology | DX: R35.0 Frequency of micturition (principal) | CPT/HCPCS: 81000; 87086 ==

== ENCOUNTER → 2023-09-09 14:37 | Outpatient (BNVA) | payer MEDICAID, SELFPAY | PROVIDERS: PCP Family Medicine; Referring Provider Family Medicine; Visit Provider Internal Medicine | DX: R07.9 Chest pain, unspecified (principal); I49.9 Cardiac arrhythmia, unspecified; I49.1 Atrial premature depolarization; I49.3 Ventricular premature depolarization; I47.10 Supraventricular tachycardia, unspecified | CPT/HCPCS: 93242 ==

== ENCOUNTER → 2024-03-23 12:31 | Outpatient (BNVA) | payer MEDICAID, SELFPAY | PROVIDERS: PCP Family Medicine; Visit Provider Internal Medicine | DX: R07.9 Chest pain, unspecified (principal); I10 Essential (primary) hypertension; E78.5 Hyperlipidemia, unspecified | CPT/HCPCS: 99214 ==

== ENCOUNTER 2024-04-04 12:51 | Outpatient (CLI) | payer MEDICAID, SELFPAY ==
[2024-04-04] MEDS: albuterol 2.5 mg/3 mL Neb INHALATION (13:11)
[2024-04-04 13:13] VITALS: PULSE 84; RESP 18; O2SAT 99
== END 2024-04-04 12:52 | disposition home or self-care (01) ==
LOC: RT 12:52
PROVIDERS: PCP Family Medicine; Visit Provider Internal Medicine
DX: R06.02 Shortness of breath (principal); J44.9 Chronic obstructive pulmonary disease, unspecified
CPT/HCPCS: 94060; J7613